=== PATIENT | male | born 1945 | race Caucasian/White ===

== ENCOUNTER 2016-05-05 13:13 | Emergency (ER) ==
--- NOTE | 2016-05-05 14:44 | PROVIDER DOCUMENTATION ---
[facility]-EENT General - General Chief Complaint: Toothache Stated Complaint: TOOTHACHE Time Seen by Provider: 05/05/16 13:24 Source: patient Allergies/Adverse Reactions: Patient Allergies Allergy/AdvReac Type Severity Reaction Status Date / Time codeine AdvReac Mild DIZZINESS Verified 05/05/16 14:49 cyclobenzaprine HCl * AdvReac Mild DIZZINESS Verified 05/05/16 14:49 [From Flexeril] ibuprofen [From Motrin] AdvReac Mild DIZZINESS Verified 05/05/16 14:49 ketorolac tromethamine * AdvReac Mild DIZZINESS Verified 05/05/16 14:49 [From Toradol] meperidine HCl * AdvReac Mild NAUSEA Verified 05/05/16 14:49 [From Demerol] morphine AdvReac Mild DIZZINESS Verified 05/05/16 14:49 propoxyphene napsylate * AdvReac Mild NAUSEA Verified 05/05/16 14:49 [From Darvocet-N 100] tramadol AdvReac Mild DIZZINESS Verified 05/05/16 14:49 Home Medications: Home Medication List Medication Instructions Recorded Confirmed Last Taken Type Clonazepam [Klonopin] 2 mg PO HS 11/30/14 05/05/16 04/30/16 History Hydrocodone/Acetaminophen [[place] 7.5 mg PO BID 07/01/15 05/05/16 04/30/16 History 7.5-325 Tablet] Acetaminophen [Tylenol] 325 mg PO Q4-6H PRN PRN #50 tablet 05/05/16 Unknown Rx Cephalexin [Keflex] 500 mg PO BID #14 capsule 05/05/16 Unknown Rx - History of Present Illness-EENT General Nature of Presenting Problem: Pt is a 70 y/o M c chief complaint of dental pain throughout his mouth. Pt has a long h/o dental decay and has lost the majority of his teeth due to decay. Pt denies any trismus, inability to manage oral secretions, difficulty swallowing, fever, chills, nausea, vomiting. On arrival, pt is in no distress and is non-toxic in appearance. Review of Systems - Adult - REVIEW OF SYSTEMS - ADULT Constitutional: reports: no symptoms reported. denies: chills, fatique Eyes: reports: no symptoms reported. denies: blurred vision, double vision Ears, Nose, Mouth & Throat: reports: mouth/dental pain. denies: ear pain, nose pain Cardiovascular: reports: no symptoms reported. denies: chest pain, irregular heart rate Respiratory: reports: no symptoms reported. denies: cough, shortness of breath Gastrointestinal: reports: no symptoms reported. denies: abdominal pain, nausea Genitourinary: reports: no symptoms reported. denies: dysuria, hematuria Musculoskeletal: reports: no symptoms reported. denies: joint pain, joint swelling Integumentary: reports: no symptoms reported. denies: hives, itching, rash Neurological: reports: no symptoms reported. denies: numbness, paresthesia Psychiatric: reports: no symptoms reported. denies: anxiety, emotional problems Endocrine: reports: no symptoms reported. denies: cold intolerance, heat intolerance Hematologic/Lymphatic: reports: no symptoms reported. denies: blood clots, low blood count Allergic/Immunologic: reports: no symptoms reported All Other Systems: Reviewed and Negative Past History - Adult - PAST MEDICAL HISTORY-ADULT Review of Records: reports: Old Records Reviewed, Nursing Assessment Review, Medications Reviewed, Social history reviewed & non-contributory. Major Childhood Illnesses: reports: denies history Cardiovascular: reports: denies history Respiratory: reports: COPD Gastrointestinal: reports: GERD Obstetrical/Gynecological: reports: denies history Genitourinary: reports: denies history Musculoskeletal: reports: chronic pain, neck/back injury Neurological: reports: denies history Psychiatric: reports: anxiety, depression Endocrine/Immune: reports: denies history Other Conditions: reports: denies history Additional History: Frequent ER visits - PRIOR SURGERIES/PROCEDURES Surgical/Procedure History: reports: hernia repair, orthopedic (extremity), other (sinus surgery. arthroscopy) - IMMUNIZATION STATUS Childhood Immunizations: See Nurse Assessment Flu Vaccine: See Nurse Assessment - FAMILY HISTORY Family History: reviewed, not pertinent - SOCIAL HISTORY Smoking: denies Substance Use: none/never Alcohol Use Frequency: never Living Situation: family Physical Exam- EENT - Physical Exam EENT Initial Vital Signs Reviewed: Yes General Appearance: appears well, alert, no apparent distress Eye Exam: bilateral eye: normal inspection, PERRL, EOMI Ear Exam: bilateral ear: auricle normal, canal normal, TM normal Nasal Exam: normal inspection Throat Exam: normal mouth inspection, pharynx normal, dental tenderness Mouth,Throat: 1 - Extensive Neck: non-tender, full range of motion, supple Respiratory: chest non-tender, lungs clear, normal breath sounds Cardiovascular: normal peripheral pulses, regular rate, rhythm, no edema Abdominal Exam: normal bowel sounds, non tender, soft Lymphatic: no adenopathy Back Exam: normal inspection, no CVA tenderness, no vertebral tenderness Extremity: normal range of motion, non-tender, normal gait Integumentary: normal color, normal turgor, warm/dry Progress - PLAN OF CARE/RESULTS Progress/Plan/Lab Results: Vital Signs - 24 hr 05/05/16 05/05/16 13:25 15:02 Temperature 97.9 F Pulse Rate 72 70 Respiratory 18 18 Rate Blood Pressure 109/57 115/64 O2 Sat by Pulse 100 100 Oximetry Departure - Departure Time of Disposition Order: 14:51 DIAGNOSIS: Pain due to dental caries Disposition: HOME 01 Certified Medical Emergency: Emergent Condition: Stable Additional Instructions: FOLLOW UP WITH DENTIST. ED Follow Up Instructions: You have been treated by a care provider in the Emergency Department. These instructions are being provided to you so you can have an understanding of how to care for yourself upon discharge. Upon discharge from the Emergency Department, you are responsible for making arrangements for follow-up care by a physician of your choice. Take all prescribed medications as directed. Return to the Emergency Department immediately for any new or worsening symptoms. You may call the Physician Referral phone number at [phone] to obtain a list of Physicians who are taking new patients. Prescriptions: Cephalexin [Keflex] 500 mg PO BID #14 capsule Acetaminophen [Tylenol] 325 mg PO Q4-6H PRN PRN #50 tablet PRN Reason: Pain Referrals: Eliseo Hunt MD [Primary Care Provider] - Instructions: Dental Pain, [id number] Attestation - Physician/ FERNANDA Attestation Patient care was provided by Advanced Practice Provider:: Yes Advanced Practice Provider:: Pramod Sanders Advanced Practice Provider documentation review:: The Mid-level provider documentation, treatment plan and medical decision making was reviewed by the physician who agrees with all treatment and medical decision making by the MLP.
[2016-05-05 15:05] VITALS: BP 115/64
== END 2016-05-05 15:03 | disposition home or self-care (01) ==
LOC: ED 13:13
DX: K02.9 Dental caries, unspecified (principal); K08.89 Other specified disorders of teeth and supporting structures; J44.9 Chronic obstructive pulmonary disease, unspecified; G89.29 Other chronic pain; F41.9 Anxiety disorder, unspecified; Z79.899 Other long term (current) drug therapy

== ENCOUNTER 2016-05-21 03:29 | Emergency (ER) ==
[2016-05-21] MEDS ORDERED: SODIUM CHLORIDE 0.9% INJ ONE (03:55)
[2016-05-21] MEDS ORDERED: G.I. COCKTAIL PO ONE (03:55)
[2016-05-21] MEDS ORDERED: PROTONIX IV ONE (03:55)
[2016-05-21] MEDS ORDERED: ZOFRAN IV ONE (03:55)
[2016-05-21 04:08] LABS: MANUAL DIFF NEEDED? NO
[2016-05-21 04:08] LABS: URINE CULTURE NEEDED? NO; URINE MICRO REVIEW NEEDED? NO; URINE SOURCE CLEAN CATCH
[2016-05-21 04:11] LABS: BASO% 0.4 % (0.0-0.8); EOS# 0.22 X1000 (0.0-0.7); EOS% 4.4 % (0.0-10.0); HEMATOCRIT 34.9 % (42.0-52.0); HEMOGLOBIN 11.8 g/dL (14.0-18.0); LYMPH# 1.81 X1000 (1.2-3.4); LYMPH% 36.3 % (20.5-51.1); MCH 33.4 PG (27-31); MCHC 33.8 g/dL (33-37); MCV 98.9 FL (81-99); MPV 10.2 FL (7.4-10.4); NEUT% 46.9 % (42.2-75.2); PLT 208 X1000 (130-400); RBC 3.53 XMIL (4.7-6.1)
[2016-05-21 04:12] LABS: BILIRUBIN URINE NEGATIVE (NEGATIVE); BLOOD URINE TRACE (NEGATIVE); COLOR YELLOW; GLUCOSE URINE NEGATIVE (NEGATIVE); LEUKOCYTES URINE NEGATIVE (NEGATIVE); NITRITE URINE NEGATIVE (NEGATIVE); PH URINE 5.5; PROTEIN URINE TRACE mg/dL (NEGATIVE); SP GRAVITY URINE 1.027; TURBIDITY URINE CLEAR (CLEAR); UROBILINOGEN URINE 2 mg/dL (NORMAL)
[2016-05-21 04:14] LABS: UR EPITHELIAL CELLS <10 /HPF (<10); URINE BACTERIA NEGATIVE /HPF; URINE RBC <10 /HPF (<10); URINE WBC <10 /HPF (<10)
[2016-05-21 04:35] LABS: ALBUMIN 3.9 g/dL (3.5-5.0); CALCIUM 9.1 mg/dL (8.8-10.2); POTASSIUM 4.2 mmol/L (3.5-5.1); TOTAL BILIRUBIN 0.24 mg/dL (0.20-1.00); TOTAL PROTEIN 6.5 g/dL (6.3-8.3)
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
[2016-05-21 05:28] VITALS: BP 101/64
--- NOTE | 2016-05-21 08:50 | Diag Imaging Result Document ---
PROCEDURE NAME: FLAT/UPRIGHT ABD/1 VIEW CHEST - 05/21/2016 PLAIN RADIOGRAPH OF THE CHEST AND ABDOMEN 3 VIEWS: COMPARISON: Chest radiograph dated 09/05/2015. FINDINGS: There are nonspecific bowel gas and stool patterns. There is no discrete obstructive pattern. There is no evidence of large-volume free abdominal gas. There is no evidence of organomegaly. The lungs are clear and cardiac silhouette is unremarkable. IMPRESSION: Nonspecific abdomen.
--- NOTE | 2016-05-21 09:01 | ED EKG INTERP ---
EKG Interpretation - EKG Time of EKG reading by physician:: 05:23 EKG Read and Signed by:: Galen Hughes EKG Interpretation (*Must complete 3 of following elements*): Normal Rate: 55 Rhythm: SINUS DOMENICO [place]: normal QRS: normal PA Interval: normal ST Wave: normal
--- NOTE | 2016-05-21 09:02 | ED EKG INTERP ---
EKG Interpretation - EKG Time of EKG reading by physician:: 03:44 EKG Read and Signed by:: Galen Hughes EKG Interpretation (*Must complete 3 of following elements*): Normal Rate: 63 Rhythm: nsr [place]: normal QRS: normal OR Interval: normal ST Wave: normal
--- NOTE | 2016-05-21 10:22 | EKG Report ---
Test Performed on : 05/21/2016 05:23:33 AM Test Reason : REPEAT Blood Pressure : / mmHG Vent. Rate : 055 BPM Atrial Rate : 055 BPM P-R Int : 170 ms QRS Dur : 084 ms QT Int : 426 ms P-R-T Axes : 043 033 059 degrees QTc Int : 407 ms Sinus bradycardia. Otherwise normal ECG When compared with ECG of 21-MAY-2016 03:44, (Unconfirmed) No significant change was found Unconfirmed Result
--- NOTE | 2016-05-21 10:23 | EKG Report ---
Test Performed on : 05/21/2016 03:44:56 AM Test Reason : EPIGASTRIC PAIN/SOB Blood Pressure : / mmHG Vent. Rate : 063 BPM Atrial Rate : 063 BPM P-R Int : 154 ms QRS Dur : 086 ms QT Int : 422 ms P-R-T Axes : 069 037 048 degrees QTc Int : 431 ms Normal sinus rhythm. Normal ECG When compared with ECG of 13-JUN-2014 00:11, No significant change was found Unconfirmed Result
== END 2016-05-21 05:28 | disposition home or self-care (01) ==
LOC: ED 03:29
DX: R10.13 Epigastric pain (principal); R11.0 Nausea; R09.81 Nasal congestion; R12 Heartburn; R10.816 Epigastric abdominal tenderness; J44.9 Chronic obstructive pulmonary disease, unspecified; K21.9 Gastro-esophageal reflux disease without esophagitis; G89.29 Other chronic pain; Z79.899 Other long term (current) drug therapy; M54.9 Dorsalgia, unspecified; F41.9 Anxiety disorder, unspecified; Z87.891 Personal history of nicotine dependence
CPT/HCPCS: 74022; 80053; 81001; 82150; 83690; 84484; 85025; 93005

== ENCOUNTER 2016-05-26 08:48 | Emergency (ER) ==
--- NOTE | 2016-05-26 10:46 | PROVIDER DOCUMENTATION ---
HPI-EENT General - General Chief Complaint: Toothache Stated Complaint: infection in mouth Time Seen by Provider: 05/26/16 10:36 Source: patient Allergies/Adverse Reactions: Patient Allergies Allergy/AdvReac Type Severity Reaction Status Date / Time codeine AdvReac Mild DIZZINESS Verified 05/26/16 09:11 cyclobenzaprine HCl * AdvReac Mild DIZZINESS Verified 05/26/16 09:11 [From Flexeril] ibuprofen [From Motrin] AdvReac Mild DIZZINESS Verified 05/26/16 09:11 ketorolac tromethamine * AdvReac Mild DIZZINESS Verified 05/26/16 09:11 [From Toradol] meperidine HCl * AdvReac Mild NAUSEA Verified 05/26/16 09:11 [From Demerol] morphine AdvReac Mild DIZZINESS Verified 05/26/16 09:11 propoxyphene napsylate * AdvReac Mild NAUSEA Verified 05/26/16 09:11 [From Darvocet-N 100] tramadol AdvReac Mild DIZZINESS Verified 05/26/16 09:11 Home Medications: Home Medication List Medication Instructions Recorded Confirmed Last Taken Type Clonazepam [Klonopin] 2 mg PO HS 11/30/14 05/26/16 05/22/16 History Hydrocodone/Acetaminophen [[place] 7.5 mg PO BID 07/01/15 05/26/16 05/24/16 History 7.5-325 Tablet] Cephalexin [Keflex] 500 mg PO BID #14 capsule 05/26/16 Unknown Rx - History of Present Illness-EENT General Nature of Presenting Problem: 71 year old WM presents with c/o bilateral lower tooth pain for 1 week. pt reports pain is dull, constant, exacerbated by chewing, eating and drinking. pt is a pain clinic patient and reports the norco he takes for chronic back pain has not been relieving pain. EENT Location: reports: dental Quality of Pain: reports: aching, dull Severity: reports: mild Onset/Duration: reports: 1 week ago Timing: reports: still present, constant, getting worse Prearrival Treatment: Initiated no prearrival treatment, Not Used over the counter meds, Not Used prescription meds Associated Symptoms: reports: denies symptoms, tooth pain. denies: cough, drooling, ear drainage, facial pain/swelling, fever, malaise, nasal congestion/ drainage, poor fluid intake, poor solids intake, sinus infection, sore throat, voice change Similar Symptoms Previously?: Yes Recently seen or treated by another doctor?: No - Throat/Dental Throat/Dental Problem Symptoms: reports: toothache. denies: jaw pain, sore throat, swelling of jaw/face, trouble breathing, throat swelling, unable to swallow Throat/Dental Problem Context: reports: dental decay, fractured tooth Recently seen a dentist or have an appointment?: No (pt reports he cannot afford a dentist, on a fixed income.) Review of Systems - Adult - REVIEW OF SYSTEMS - ADULT Constitutional: reports: no symptoms reported. denies: chills, fever, fatique Eyes: reports: no symptoms reported. denies: discharge, blurred vision, double vision Ears, Nose, Mouth & Throat: reports: see HPI, loose teeth, mouth/dental pain. denies: ear discharge, ear pain, hearing loss, tinnitus, epistaxis, sinus problem, nose pain, mouth swelling, hoarseness, throat pain, throat swelling Cardiovascular: reports: no symptoms reported. denies: chest pain, palpitations , syncope Respiratory: reports: no symptoms reported. denies: chronic cough, cough, shortness of breath, wheezing Gastrointestinal: reports: no symptoms reported. denies: abdominal pain, diarrhea, nausea, poor appetite, vomiting Genitourinary: reports: no symptoms reported. denies: dysuria, hematuria, urgency Musculoskeletal: reports: no symptoms reported. denies: bone pain, joint pain, joint swelling, neck pain Integumentary: reports: no symptoms reported. denies: hives, itching, rash, skin sores/ulcer Neurological: reports: no symptoms reported. denies: ataxia, dizziness/vertigo Psychiatric: reports: no symptoms reported Endocrine: reports: no symptoms reported Hematologic/Lymphatic: reports: no symptoms reported Allergic/Immunologic: reports: no symptoms reported All Other Systems: Reviewed and Negative Past History - Adult - PAST MEDICAL HISTORY-ADULT Review of Records: reports: Old Records Reviewed, Nursing Assessment Review, Medications Reviewed, Social history reviewed & non-contributory. Major Childhood Illnesses: reports: denies history Cardiovascular: reports: denies history Respiratory: reports: COPD Gastrointestinal: reports: GERD Obstetrical/Gynecological: reports: denies history Genitourinary: reports: denies history Musculoskeletal: reports: chronic pain, neck/back injury Neurological: reports: denies history Psychiatric: reports: anxiety, depression Endocrine/Immune: reports: denies history Other Conditions: reports: denies history Additional History: Frequent ER visits - PRIOR SURGERIES/PROCEDURES Surgical/Procedure History: reports: hernia repair, orthopedic (extremity), other (sinus surgery. arthroscopy) - IMMUNIZATION STATUS Childhood Immunizations: See Nurse Assessment Flu Vaccine: See Nurse Assessment - FAMILY HISTORY Family History: reviewed, not pertinent - SOCIAL HISTORY Smoking: cigarettes Provider spent 3-5 mins advising pt. on dangers of tobacco.: Discussed manners to quit use, and f/u contacts for add'l counseling. Substance Use: none/never Alcohol Use Frequency: never Physical Exam- EENT - Physical Exam EENT Initial Vital Signs Reviewed: Yes General Appearance: appears well, alert, no apparent distress. negative: mild distress, moderate distress, severe distress, lethargic, slow to respond, obtunded, combative Eye Exam: bilateral eye: normal inspection Ear Exam: bilateral ear: auricle normal, canal normal, TM normal Nasal Exam: normal inspection. negative: active bleeding, discharge, dried blood, foreign body, sinus tenderness Throat Exam: normal mouth inspection, pharynx normal, dental tenderness (see oral descriptrion). negative: excessive drooling, mandibular swelling, maxillary swelling, pharynx swelling, pharynx tenderness, tongue swollen, tonsillar exudate, tonsillar swelling, trismus, uvula swelling, voice changes Mouth,Throat: 1 - cracked, fractured teeth with surrounding erythema 2 - few teeth remain between #22-27, those that remain are black with profound dental decay. Neck: non-tender, full range of motion, supple, normal inspection. negative: C- spine tenderness, limited range of motion, lymphadenopathy, tender lateral, tender midline Respiratory: chest non-tender, lungs clear, normal breath sounds, no pleuratic chest pain, no respiratory distress, no accessory muscle use Cardiovascular: normal peripheral pulses, regular rate, rhythm Abdominal Exam: normal bowel sounds, non tender, soft Lymphatic: negative: cervical node tenderness Back Exam: normal inspection, no CVA tenderness, no vertebral tenderness Extremity: normal range of motion, non-tender, normal gait, normal inspection Integumentary: normal color, normal turgor, warm/dry Neurologic: grossly normal, no motor/sensory deficits Psych/Mental Status: normal mood/affect, normal thought content, normal thought process, oriented x 3 Progress - PLAN OF CARE/RESULTS Progress/Plan/Lab Results: Vital Signs - 24 hr 05/26/16 05/26/16 09:01 11:06 Temperature 97.8 F Pulse Rate 84 62 Respiratory 20 18 Rate Blood Pressure 111/66 O2 Sat by Pulse 97 100 Oximetry Departure - Departure Time of Disposition Order: 10:44 DIAGNOSIS: Dental caries Disposition: HOME 01 Certified Medical Emergency: Emergent Condition: Stable Additional Instructions: Follow up with a dentist as soon as possible. ED Follow Up Instructions: You have been treated by a care provider in the Emergency Department. These instructions are being provided to you so you can have an understanding of how to care for yourself upon discharge. Upon discharge from the Emergency Department, you are responsible for making arrangements for follow-up care by a physician of your choice. Take all prescribed medications as directed. Return to the Emergency Department immediately for any new or worsening symptoms. You may call the Physician Referral phone number at [phone] to obtain a list of Physicians who are taking new patients. Prescriptions: Cephalexin [Keflex] 500 mg PO BID #14 capsule Referrals: Eliseo Hunt MD [Primary Care Provider] - Instructions: Dental Pain Attestation - Physician/ FERNANDA Attestation Patient care was provided by Advanced Practice Provider:: Yes Advanced Practice Provider:: Fernando Barrientos Advanced Practice Provider documentation review:: The Mid-level provider documentation, treatment plan and medical decision making was reviewed by the physician who agrees with all treatment and medical decision making by the [facility].
[2016-05-26 11:13] VITALS: BP 111/66
== END 2016-05-26 11:07 | disposition home or self-care (01) ==
LOC: ED 08:48
DX: K02.9 Dental caries, unspecified (principal); K08.89 Other specified disorders of teeth and supporting structures; S02.5XXA Fracture of tooth (traumatic), initial encounter for closed fracture; J44.9 Chronic obstructive pulmonary disease, unspecified; G89.29 Other chronic pain; F41.9 Anxiety disorder, unspecified; F17.210 Nicotine dependence, cigarettes, uncomplicated; Z79.899 Other long term (current) drug therapy; Z71.6 Tobacco abuse counseling